=== PATIENT | male | born 1965 | race African-American/Black ===

== ENCOUNTER 2017-11-05 12:53 | Emergency (ER) | payer MEDICAID ==
[~2017-11-05] VITALS: Ht 177.8 cm; Wt 81.6 kg
--- NOTE | 2017-11-05 13:54 | Emergency Room Report ---
History of Present Illness General Chief Complaint: Medical Clearance Source: Patient Present Illness HPI 52year-old male patient presents ER brought in by police for medical clearance for incarceration. patient reports no symptoms at this time. Police reprot patient being arrested for alleged drug use, found with alcohol and pipes. Reports that he was "stressed out" when it first was in the back of the police car but feels better now. Denies any acute symptoms, denies fever, chest pain, shortness of breath, abdominal pain, headache. reports history of alcohol use and methamphetamine use. Denies suicidal or homicidal ideation. Requesting pain medication. Allergies: Coded Allergies: No Known Allergies (Unverified , 03/03/16) Patient History Past Medical History: see triage record Reviewed Nursing Documentation: PMH: Agreed; PSxH: Agreed Nursing Documentation-PMH Past Medical History: No Stated History Review of Systems All Other Systems: negative except mentioned in HPI Physical Exam Vital Signs Date Time Temp Pulse Resp B/P (MAP) Pulse Ox O2 Delivery O2 Flow Rate FiO2 11/05/17 13:12 98.0 108 20 130/93 99 Room Air 98.1 Sp02 EP Interpretation: reviewed, normal General Appearance: well appearing, no apparent distress, alert, GCS 15, non- toxic Head: normocephalic, atraumatic Eyes: bilateral eye normal inspection, bilateral eye PERRL ENT: hearing grossly normal, normal pharynx, no angioedema, normal voice, TMs + canals normal, uvula midline, moist mucus membranes Neck: full range of motion Respiratory: lungs clear, normal breath sounds, no rhonchi, no respiratory distress, no accessory muscle use, no wheezing, speaking full sentences Cardiovascular #1: regular rate, rhythm, no edema Gastrointestinal: non tender, soft, no mass, non-distended, no guarding, no rebound Genitourinary: no CVA tenderness Musculoskeletal: back normal, digits/nails normal, gait/station normal, normal range of motion, non-tender Neurologic: alert, oriented x3, responsive, motor strength/tone normal, sensory intact Psychiatric: mood/affect normal Skin: no rash Lymphatic: no adenopathy Medical Decision Making PA Attestation Dr. Valle is my supervising Physician whom patient management has been discussed with. Diagnostic Impression: Primary Impression: Medical clearance for incarceration ER Course Pt. presents to the ED requesting medical clearance for booking. Multiple differentials considered. Patient Vitals Signs WNL, patient is afebrile. Ordered ER COURSE: PE benign. No skull depression, lungs clear to auscultation, no abdominal TTP. Patient not suicidal or homicidal at this time. Patient in no acute distress, nontoxic appearing, breathing without difficulty. provided patient with Tylenol for pain symptoms, patient states feeling better following administration of medication. Patient OK for discharge to police custody. DISCHARGE: At this time pt. is stable for d/c to police custody. patient resting comfortably, in no acute distress, nontoxic appearing. Will provide printed patient care instructions, and any necessary prescriptions. Care plan and follow up instructions have been discussed with the patient prior to discharge - Please note that this Emergency Department Report was dictated using [employer] hand technology software, occasionally this can lead to erroneous entry secondary to interpretation by the dictation equipment. Last Vital Signs Date Time Temp Pulse Resp B/P (MAP) Pulse Ox O2 Delivery O2 Flow Rate FiO2 11/05/17 13:41 98.0 11/05/17 13:12 108 20 130/93 99 Room Air Disposition: HOME, SELF-CARE Condition: Stable Departure Forms: Detention Clearance Patient Instructions: Alcohol Abuse and Nutrition, Stimulant Use Disorder- Methamphetamines Additional Instructions: Followup with primary care provider in 3 -5 days. Do not use meth or drink alcohol. Take medications as directed. Patient questions asked and answered. ER precautions given, patient instructed to return to ER immediately for any new or worsening of symptoms. Fuentes Baker Nov 05, 2017 13:54
[2017-11-05 14:03] VITALS: BP 130/93
[2017-11-05 14:08] VITALS: BP 130/93
== END 2017-11-05 15:30 ==
LOC: EMR 15:18
DX: Z02.89 Encounter for other administrative examinations (principal)
CPT/HCPCS: 99283

== ENCOUNTER 2018-01-09 13:45 | Emergency (ER) | payer MEDICAID ==
[~2018-01-09] VITALS: Ht 177.8 cm; Wt 77.1 kg
[2018-01-09] MEDS ORDERED: Aspirin Baby 81mg ORAL ONE (14:15)
--- NOTE | 2018-01-09 14:19 | Emergency Room Report ---
History of Present Illness General Chief Complaint: Medical Clearance Source: Patient Present Illness HPI 52-year-old male patient presents ER brought in by police for clearance for incarceration. Patient complaining of chest pain and high blood pressure. Reports history of high blood pressure but does not take any medications, states he does not want to take any medications. Reports his trying to treat it without medications. Reports chest pain began last night. Denies radiation to arms. Denies recent physical activity or activity prior to onset of pain symptoms. Denies worsening of symptoms or change in symptoms. Please reports that patient is being arrested for alleged meth use. patient denies shortness of breath, abdominal pain, headache, vision changes. Denies smoking. Allergies: Coded Allergies: PENICILLINS (Verified Allergy, Unknown, 01/09/18) Patient History Past Medical History: see triage record Reviewed Nursing Documentation: PMH: Agreed; PSxH: Agreed Nursing Documentation-PMH Past Medical History: No Stated History Review of Systems All Other Systems: negative except mentioned in HPI Physical Exam Vital Signs Date Time Temp Pulse Resp B/P (MAP) Pulse Ox O2 Delivery O2 Flow Rate FiO2 01/09/18 13:48 97.8 96 18 156/99 99 Room Air 97.9 Sp02 EP Interpretation: reviewed, normal General Appearance: well appearing, no apparent distress, alert, GCS 15, non- toxic Head: normocephalic, atraumatic Eyes: bilateral eye normal inspection, bilateral eye PERRL ENT: hearing grossly normal, normal pharynx, no angioedema, normal voice, uvula midline, moist mucus membranes Neck: full range of motion Respiratory: lungs clear, normal breath sounds, no rhonchi, no respiratory distress, no accessory muscle use, no wheezing, speaking full sentences Cardiovascular #1: regular rate, rhythm, no edema Gastrointestinal: non tender, soft, no mass, non-distended, no guarding, no rebound Genitourinary: no CVA tenderness Musculoskeletal: back normal, digits/nails normal, gait/station normal, normal range of motion, non-tender Neurologic: alert, oriented x3, responsive, motor strength/tone normal, sensory intact Psychiatric: mood/affect normal Skin: no rash Medical Decision Making PA Attestation Dr. Nuñez is my supervising Physician whom patient management has been discussed with. Diagnostic Impression: Primary Impression: Atypical chest pain Additional Impressions: Medical clearance for incarceration Elevated blood pressure reading ER Course Pt. presents to the ED c/o chest pain. Ddx considered but are not limited to hx of RA, hx of DM, hx of peripheral neuropathy, NV, arrhythmia, DVT. No calf swelling, negative Krys's sign, low suspicion for DVT per Well's criteria. Will order labs to rule out cardiac pathology. Vital signs: are WNL, pt. is afebrile Blood pressure mildly elevated at this time, will continue to monitor. Denies chest pain, shortness of breath, vision changes, does not require acute intervention at ER at this time. Follow with primary care provider discuss further treatment and referral. Advised on low-sodium diet, advised on diet and exercise. Ordered X-ray, labs, troponin, EKG and aspirin. ER COURSE Labs shows no elevation in WBC or LFTs CKMB and index levels are considered normal Troponin 0.02, within range of negative CXR negative for acute disease EKG shows normal sinus rhythm, prolonged QTc to 492, no ST elevations, low suspicion for NV. Patient denies activity prior to pain symptom onset. Low suspicion for angina at this time. Upon reexamination, patient resting comfortably in no acute distress. Reports pain symptoms have resolved. Patient has negative troponins, EKG normal, no ST elevations noted, chest x-ray negative for acute disease, patient came for outpatient management and follow-up with primary care provider. Advised patient on need for follow-up testing and treatment. Discuss high blood pressure with primary care provider need for medication. Advised on diet and exercise. Don't use drugs. Followup with primary care provider, discuss referral to cardiology. Patient to be discharge with strict return precautions and instructed to followup outpatient. Take Tylenol for pain symptoms. DISCHARGE: At this time pt. is stable for d/c to home. Patient is resting comfortably, in no acute distress, nontoxic appearing, talking without difficulty. Will provide printed patient care instructions, and any necessary prescriptions. Patient instructed to follow with primary care provider in 1-3 days. Followup with primary care provider for further pain medication rx. Followup with project developer and eye doctor. Care plan and follow up instructions have been discussed with the patient prior to discharge. Take medications as directed. Patient questions asked and answered. Patient reports understanding and agreement to treatment plan. ER precautions given, patient instructed to return to ER immediately for any new or worsening of symptoms. - Please note that this Emergency Department Report was dictated using [employer] technology software, occasionally this can lead to erroneous entry secondary to interpretation by the dictation equipment. Labs Test 01/09/18 14:15 01/09/18 15:16 01/09/18 15:46 Troponin I 0.020 ng/mL (0.000-0.056) White Blood Count 7.4 K/UL (4.8-10.8) Red Blood Count 4.68 M/UL (4.70-6.10) Hemoglobin 14.3 G/DL (14.2-18.0) Hematocrit 43.1 % (42.0-52.0) Mean Corpuscular Volume 92 FL (80-99) Mean Corpuscular Hemoglobin 30.6 PG (27.0-31.0) Mean Corpuscular Hemoglobin Concent 33.2 G/DL (32.0-36.0) Red Cell Distribution Width 11.4 % (11.6-14.8) Platelet Count 337 K/UL (150-450) Mean Platelet Volume 6.9 FL (6.5-10.1) Neutrophils (%) (Auto) 63.8 % (45.0-75.0) Lymphocytes (%) (Auto) 28.5 % (20.0-45.0) Monocytes (%) (Auto) 5.5 % (1.0-10.0) Eosinophils (%) (Auto) 0.9 % (0.0-3.0) Basophils (%) (Auto) 1.4 % (0.0-2.0) Sodium Level 139 MMOL/L (136-145) Potassium Level 3.7 MMOL/L (3.5-5.1) Chloride Level 105 MMOL/L (98-107) Carbon Dioxide Level 25 MMOL/L (21-32) Anion Gap 9 mmol/L (5-15) Blood Urea Nitrogen 18 mg/dL (7-18) Creatinine 1.1 MG/DL (0.55-1.30) Estimat Glomerular Filtration Rate > 60 mL/min (>60) Glucose Level 91 MG/DL (74-106) Calcium Level 8.6 MG/DL (8.5-10.1) Total Bilirubin 0.5 MG/DL (0.2-1.0) Aspartate Amino Transf (AST/SGOT) 31 U/L (15-37) Alanine Aminotransferase (ALT/SGPT) 23 U/L (12-78) Alkaline Phosphatase 68 U/L (46-116) Total Creatine Kinase 281 U/L (26-308) Creatine Kinase MB 5.0 NG/ML (0.0-3.6) Creatine Kinase MB Relative Index 1.7 Total Protein 7.3 G/DL (6.4-8.2) Albumin 3.3 G/DL (3.4-5.0) Globulin 4.0 g/dL Albumin/Globulin Ratio 0.8 (1.0-2.7) EKG Diagnostic Results Rate: normal Rhythm: NSR ST Segments: no acute changes Other Impression prolonged QT ASA given to the pt in ED: Yes SERGIO SelbyibDeloris Baker PA-C Rhythm Strip Diag. Results EP Interpretation: yes Rate: 96 Rhythm: NSR SERGIO Selbyibe Debi Baker PA-C Chest X-Ray Diagnostic Results Chest X-Ray Diagnostic Results : Chest X-Ray Ordered: Yes # of Views/Limited/Complete: 1 View Indication: Chest Pain EP Interpretation: Yes PA Xray: Interpretation reviewed, by supervising MD, and agrees with findings. Interpretation: no consolidation, no effusion, no pneumothorax Impression: No acute disease PA Scribe Debi Baker PA-C Last Vital Signs Date Time Temp Pulse Resp B/P (MAP) Pulse Ox O2 Delivery O2 Flow Rate FiO2 01/09/18 13:48 97.8 96 18 156/99 99 Room Air 97.9 Disposition: D/C TO LAW ENFORCEMENT IN CUST Condition: Stable Patient Instructions: Acute Coronary Syndrome, Chest Pain Observation, Hypertension, [id number] Additional Instructions: Followup with primary care provider in 3 -5 days. Discuss HTN and need for medication. Discuss referral to stress test and other cardiac workup as needed. Low sodium diet, diet and exercise. Do not use drugs. Take medications as directed. Patient questions asked and answered. ER precautions given, patient instructed to return to ER immediately for any new or worsening of symptoms. Fuentes Baker Jan 09, 2018 14:19
[2018-01-09 14:29] VITALS: BP 156/99
--- NOTE | 2018-01-09 14:58 | Diagnostic Imaging Report ---
Indication: Chest pain Technique: XRAY Chest 1v Comparison: None Findings: Heart size and mediastinal contours are within normal limits for AP technique. There is no focal consolidation, pneumothorax or pleural effusion. Osseous structures demonstrate no acute abnormality. Impression: No radiographic evidence of acute cardiopulmonary disease.
[2018-01-09 15:53] LABS: BASOPHILS % (AUTO) 1.4 % (0.0-2.0); EOSINOPHILS % (AUTO) 0.9 % (0.0-3.0); HEMATOCRIT 43.1 % (42.0-52.0); HEMOGLOBIN 14.3 G/DL (14.2-18.0); LYMPHOCYTES % (AUTO) 28.5 % (20.0-45.0); MEAN CORPUSCULAR VOLUME 92 FL (80-99); MONOCYTES % (AUTO) 5.5 % (1.0-10.0); NEUTROPHILS % (AUTO) 63.8 % (45.0-75.0); PLATELET COUNT 337 K/UL (150-450); RED BLOOD COUNT 4.68 M/UL (4.70-6.10); RED CELL DISTRIBUTION WIDTH 11.4 % (11.6-14.8); WHITE BLOOD COUNT 7.4 K/UL (4.8-10.8)
[2018-01-09 16:09] LABS: ANION GAP 9 mmol/L (5-15); BLOOD UREA NITROGEN 18 mg/dL (7-18); CALCIUM 8.6 MG/DL (8.5-10.1); CARBON DIOXIDE 25 MMOL/L (21-32); CHLORIDE 105 MMOL/L (98-107); CREATININE 1.1 MG/DL (0.55-1.30); POTASSIUM 3.7 MMOL/L (3.5-5.1); SODIUM 139 MMOL/L (136-145)
[2018-01-09 16:22] LABS: ALANINE AMINOTRANSFERASE 23 U/L (12-78); ALBUMIN 3.3 G/DL (3.4-5.0); ALBUMIN/GLOBULIN RATIO 0.8 (1.0-2.7); ALKALINE PHOSPHATASE 68 U/L (46-116); ASPARTATE AMINO TRANSFERASE 31 U/L (15-37); BILIRUBIN,TOTAL 0.5 MG/DL (0.2-1.0); CREATINE KINASE 281 U/L (26-308)
[2018-01-09 16:25] VITALS: BP 124/84
--- NOTE | 2018-01-10 16:06 | Cardiology Report ---
APPROVED REPORT EKG Measurement Heart [id number] Normal sinus rhythm Prolonged QT Abnormal ECG
== END 2018-01-09 16:25 ==
LOC: EMR 16:25
DX: Z02.89 Encounter for other administrative examinations (principal); R07.9 Chest pain, unspecified; R03.0 Elevated blood-pressure reading, without diagnosis of hypertension; Z88.0 Allergy status to penicillin
CPT/HCPCS: 36415; 71045; 80053; 82550; 82553; 84484; 85025; 93005; 99283

== ENCOUNTER 2018-12-27 18:50 | Emergency (ER) | payer MEDICAID, SELFPAY ==
[~2018-12-27] VITALS: Ht 172.7 cm; Wt 77.1 kg
--- NOTE | 2018-12-27 18:50 | NUR ---
ED Nurse Note: Patient brought in by for medical clearance. Patient awake, alert, oriented x 3. Patient yelling and cursing at staff, states 'I don't need medical attention. Take me to half-way' Reports no pain or any other problem at this time. Regular, unlabored breathing noted. Able to speak without SOB or dyspnea.
[2018-12-27 18:53] VITALS: BP 166/95
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
[2018-12-27 19:01] VITALS: BP 166/95
--- NOTE | 2018-12-27 19:01 | NUR ---
ED Nurse Note: Patient is being discharged from medical care. D/C instruction given and Patient left ER with . Patient ambulated out with steady gait with all his belongings.
== END 2018-12-27 19:01 ==
LOC: EMR 18:50
DX: Z02.89 Encounter for other administrative examinations (principal); R06.00 Dyspnea, unspecified; Z88.0 Allergy status to penicillin
CPT/HCPCS: 99281

== ENCOUNTER 2019-09-16 18:00 | Emergency (ER) | payer MEDICAID, SELFPAY ==
[~2019-09-16] VITALS: Ht 172.7 cm; Wt 95.3 kg
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
[2019-09-16 18:12] VITALS: BP 169/100
[2019-09-16] MEDS ORDERED: Morgan Lens TOPIC ONE (18:15)
--- NOTE | 2019-09-16 18:20 | NUR ---
ED Nurse Note: pt refused to be tested for vision acuity.
--- NOTE | 2019-09-16 18:20 | NUR ---
ED Nurse Note: irrigation set up at the bedside, pt refused.
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
[2019-09-16 18:39] VITALS: BP 169/100
--- NOTE | 2019-09-16 18:39 | NUR ---
AMA: SEE AMA FORM. Pt refused eye irrigation. Requested to leave and signed AMA after talking to ER PA. Pt ambulated out of ED with all of his belongings. NAD noted.
== END 2019-09-16 18:30 | disposition left against medical advice (07) ==
LOC: EDBD 18:00 → EMR 18:28
DX: H10.213 Acute toxic conjunctivitis, bilateral (principal); Z88.0 Allergy status to penicillin
CPT/HCPCS: 99281